=== PATIENT | female | born 1960 | race Caucasian/White ===

== ENCOUNTER 2017-06-12 10:22 | Emergency (ER) | payer MEDICAID ==
[~2017-06-12] VITALS: Ht 134.6 cm; Wt 69.0 kg
[~2017-06-12 10:22] MED LIST: ASPI-1160 PO; LEVO75TA7 PO; LOSA50TA20 PO; LOVA20TA2 PO; METF500T4 PO; PANT40TA4 PO; PARO-41 PO
[2017-06-12 20:00] VITALS: BP 112/68
== END 2017-06-12 20:10 | disposition home or self-care (01) ==
LOC: ER 11:25
DX: S92.422A Displaced fracture of distal phalanx of left great toe, initial encounter for closed fracture (principal); E05.90 Thyrotoxicosis, unspecified without thyrotoxic crisis or storm; E11.9 Type 2 diabetes mellitus without complications; E78.00 Pure hypercholesterolemia, unspecified; Z79.82 Long term (current) use of aspirin; W04.XXXA Fall while being carried or supported by other persons, initial encounter; Y93.89 Activity, other specified; Y92.89 Other specified places as the place of occurrence of the external cause; Y99.8 Other external cause status
CPT/HCPCS: 11730; 73660; 99284; Z7610; 11760

== ENCOUNTER 2021-08-26 17:57 | Inpatient (IN) | payer MEDICAID ==
[~2021-08-26] VITALS: Ht 152.4 cm; Wt 66.2 kg
[~2021-08-26 17:57] MED LIST changes: -LOSA50TA20 PO; +LOSA50TA41 PO; +METF-414 PO; -METF500T4 PO; -PANT40TA4 PO; +PANT40TA51 PO
[2021-08-26 23:42] LABS: HEMATOCRIT. 38.3 % (36.0-48.0); HEMOGLOBIN. 13.1 g/dL (12.0-16.0); MEAN CORPUSCULAR HEMOGLOBIN 30.7 pg (28.0-32.0); MEAN CORPUSCULAR VOLUME 89.7 fL (81.0-99.0); MEAN PLATELET VOLUME 8.8 fl (7.4-10.4); PLATELET 192 x1000/uL (130-400); RED BLOOD CELL COUNT 4.27 mill/uL (4.2-5.4); RED CELL DISTRIBUTION WIDTH 13.4 % (11.6-14.6)
[2021-08-26 23:51] LABS: CHLORIDE 108 mEq/L (98-107)
[2021-08-27 02:52] LABS: PLATELET ESTIMATE NORMAL
[2021-08-27 08:40] VITALS: BP_SYST 141; BP_DIAS 70; BP_DIAS 71
[2021-08-27] MEDS ORDERED: ASPIRIN 81MG TABLET PO SCH (09:00)
[2021-08-27] MEDS ORDERED: ONDANSETRON HCL 4MG/2ML INJ IV PRN (09:00)
[2021-08-27] MEDS ORDERED: ACETAMINOPHEN 325MG TABLET PO PRN (09:00)
[2021-08-27 12:00] VITALS: BP 145/62
[2021-08-27] MEDS ORDERED: METOPROLOL TARTRATE 25MG TABLET PO SCH (14:30)
[2021-08-27 16:00] VITALS: BP 122/56
[2021-08-27 20:36] VITALS: BP 130/66
== END 2021-08-27 21:15 | disposition home or self-care (01) | DRG 203 ==
LOC: ER 17:57 → MICUSO 23:12 → 8WST 08-27 09:05
PROVIDERS: ADMIT Internal Medicine; ATTEND Internal Medicine
DX: M94.0 Chondrocostal junction syndrome [Tietze] (principal); E11.9 Type 2 diabetes mellitus without complications; E78.5 Hyperlipidemia, unspecified; I10 Essential (primary) hypertension; R11.0 Nausea; F41.9 Anxiety disorder, unspecified; M25.512 Pain in left shoulder; M19.90 Unspecified osteoarthritis, unspecified site; Z83.3 Family history of diabetes mellitus
CPT/HCPCS: 36415; 71045; 80053; 82962; 84484; 85025; 85379; 93005; 93306; 99285